=== PATIENT | male | born 1980 | race Caucasian/White ===

== ENCOUNTER 2022-08-20 09:25 | Emergency (ER) | payer OTHER ==
[~2022-08-20] VITALS: Ht 182.9 cm; Wt 123.4 kg
[2022-08-20 09:35] VITALS: BP 136/85
--- NOTE | 2022-08-20 09:43 | NUR ---
MEDICAL STUDENT AT BEDSIDE.
--- NOTE | 2022-08-20 09:47 | NUR ---
42 Y/O M BIB SELF C/O SORE THROAT X1 WEEK 11/29, DENIES ANY COUGH, COLDS, FEVERS, MATTHEWS. PT HAS REDNESS IN THE THROAT. NKA PMH: DENIES
--- NOTE | 2022-08-20 09:50 | NUR ---
ASHKAN HANKINS AT BEDSIDE.
[2022-08-20] MEDS ORDERED: LORA-1447 PO (10:01)
[2022-08-20] MEDS ORDERED: BENZ-300 PO (10:01)
[2022-08-20] MEDS ORDERED: IBUP-2213 PO (10:01)
--- NOTE | 2022-08-20 10:05 | NUR ---
STREP A SCREEN COLLECTED AND WALKED TO THE LAB.
--- NOTE | 2022-08-20 10:09 | NUR ---
Patient discharged with v/s stable. Written and verbal after care instructions given and explained. Patient alert, oriented and verbalized understanding of instructions. Ambulatory with steady gait. All questions addressed prior to discharge. ID band removed. Patient advised to follow up with PMD. Rx of BENZOCAINE/MENTHOL, IBUPROFEN, LORATADINE given. Opportunity to ask questions provided and answered.
--- NOTE | 2022-08-20 10:47 | NUR ---
The patient's care was reviewed and supervised by ED Agency Nurse 8, RN, RN.
== END 2022-08-20 10:08 | disposition home or self-care (01) ==
LOC: MED 09:25
DX: J02.9 Acute pharyngitis, unspecified (principal); R03.0 Elevated blood-pressure reading, without diagnosis of hypertension; Z79.899 Other long term (current) drug therapy
CPT/HCPCS: 87081; 99283

== ENCOUNTER 2022-08-24 07:51 | Emergency (ER) | payer OTHER ==
[~2022-08-24] VITALS: Ht 182.9 cm; Wt 122.9 kg
[~2022-08-24 07:51] MED LIST: BENZ-300 PO; IBUP-2213 PO; LORA-1447 PO
[2022-08-24 08:05] VITALS: BP 133/78
--- NOTE | 2022-08-24 08:31 | NUR ---
Patient being evaluated by physician at bedside.
[2022-08-24] MEDS ORDERED: ALBUTEROL 0.083% 2.5 MG/3 ML NEBU INH ONE (08:40)
[2022-08-24] MEDS ORDERED: predniSONE 20 MG TAB PO ONE (08:40)
[2022-08-24] MEDS ORDERED: IPRATROPIUM 0.02% 0.5 MG/2.5 ML NEBU INH ONE (08:40)
--- NOTE | 2022-08-24 08:46 | NUR ---
SITTING UP IN BED, NO DISTRESS
[2022-08-24] MEDS ORDERED: DEXT118S25 PO (08:55)
[2022-08-24] MEDS ORDERED: CETI1TAB5 PO (08:55)
[2022-08-24] MEDS ORDERED: FLONAS NS (08:55)
[2022-08-24] MEDS ORDERED: AMOX1TAB8 PO (08:55)
[2022-08-24] MEDS ORDERED: PRED20TA5 PO (08:55)
[2022-08-24] MEDS ORDERED: ALBU0.0912 IH (08:55)
== END 2022-08-24 10:35 | disposition home or self-care (01) ==
LOC: MED 07:51
DX: J45.909 Unspecified asthma, uncomplicated (principal); Z20.822 Contact with and (suspected) exposure to COVID-19; J32.9 Chronic sinusitis, unspecified; K21.9 Gastro-esophageal reflux disease without esophagitis; Z79.899 Other long term (current) drug therapy
CPT/HCPCS: 71046; 87426; 87804; 94760; 99284; J7512; J7613; J7644